=== PATIENT | female | born 1980 | race African-American/Black ===

== ENCOUNTER 2016-11-14 14:54 | Emergency (ER) | payer OTHER ==
[~2016-11-14] VITALS: Ht 170.2 cm; Wt 83.3 kg
[2016-11-14 16:29] LABS: HEMATOCRIT 36.4 % (36.0-46.0); MCH 30.7 PG (29.0-34.0); MCHC 34.3 G/DL (30.0-36.0); MCV 89.4 FL (83-99); RBC DIS.WIDTH-CV 11.4 % (11.8-14.6); RBC DIS.WIDTH-SD 37.2 % (39-53); RED BLOOD COUNT 4.07 M/uL (3.80-5.20); WHITE BLOOD COUNT 8.6 K/uL (4.1-10.2)
[2016-11-14 16:42] LABS: CHLORIDE 106 mEq/L (99-109); POTASSIUM 3.9 mEq/L (3.7-5.4); SODIUM 138 mEq/L (136-147)
[2016-11-14 16:44] LABS: GLUCOSE 84 mg/dL (70-99)
[2016-11-14 16:45] LABS: ANION GAP 10 MEQ/L (2-14)
[2016-11-14 16:46] LABS: TOTAL BILIRUBIN 0.5 mg/dL (0.0-1.0)
[2016-11-14 16:47] LABS: ALKALINE PHOSPHATASE 65 IU/L (3-129)
[2016-11-14 16:48] LABS: GFR ESTIMATE (CALCULATED) > 59 mL/min/
[2016-11-14 16:49] LABS: UREA NITROGEN (BUN) 9 mg/dL (9-23)
[2016-11-14 16:51] LABS: LIPASE 29 U/L (1.0-51.0)
[2016-11-14 17:22] LABS: MEAN PLAT.VOLUME 10.9 uM^3 (9.5-12.4); PLAT.SUFFICIENCY ADEQUATE; PLATELET COUNT 285 K/uL (156-360)
[2016-11-14] MEDS ORDERED: ZOFRAN ODT4 MG PO (18:16)
[2016-11-14] MEDS ORDERED: PHENADOZ25 MG PR (18:16)
[2016-11-14] MEDS ORDERED: PERCOCET 5/31 TABLET PO (18:16)
[2016-11-14] MEDS ORDERED: BENTYL20 MG PO (18:16)
[2016-11-14 18:40] LABS: ADD MIUA? NO; BILIRUBIN NEGATIVE; BLOOD NEGATIVE; COLOR YELLOW ((YELLOW)); GLUCOSE (STRIP) NEGATIVE; KETONES NEGATIVE; LEUKOCYTES NEGATIVE; NITRITE NEGATIVE; PROTEIN (STRIP) NEGATIVE; SPECIFIC GRAVITY 1.012 (1.000-1.030); UCUL ADDED? NO
[2016-11-14 18:48] VITALS: BP 151/93
== END 2016-11-14 18:49 | disposition home or self-care (01) ==
LOC: EME 14:54
DX: K80.10 Calculus of gallbladder with chronic cholecystitis without obstruction (principal)
CPT/HCPCS: 76705; 80053; 81003; 83690; 85027; 99281; 99283; J1885

== ENCOUNTER 2016-11-25 07:31 | Day surgery (SDC) | payer OTHER ==
[~2016-11-25] VITALS: Ht 170.2 cm; Wt 81.6 kg
[~2016-11-25 07:31] MED LIST: BENTYL20 MG PO; PERCOCET 5/31 TABLET PO; PHENADOZ25 MG PR; ZOFRAN ODT4 MG PO
[2016-11-25 07:59] VITALS: BP 113/76
[2016-11-25 12:09] VITALS: BP 122/71
[2016-11-25] MEDS ORDERED: PERCOCET 5/31 TABLET PO (12:49)
[2016-11-25 13:09] VITALS: BP 109/72
== END 2016-11-25 13:08 | disposition home or self-care (01) ==
LOC: SDC 07:31
PROC: 0FT44ZZ Resection of Gallbladder, Percutaneous Endoscopic Approach (ICD-10-PCS; principal; 2016-11-25)
DX: K80.10 Calculus of gallbladder with chronic cholecystitis without obstruction (principal); K21.9 Gastro-esophageal reflux disease without esophagitis
CPT/HCPCS: 88304; J0131; J1100; J1170; J1885; J2175; J2250; J2405; J2710; J2765; J3010

== ENCOUNTER 2016-12-04 20:57 | Emergency (ER) | payer OTHER ==
[~2016-12-04] VITALS: Ht 170.2 cm; Wt 83.2 kg
[2016-12-04 21:48] LABS: HEMATOCRIT 36.6 % (36.0-46.0); MCH 30.9 PG (29.0-34.0); MCHC 34.4 G/DL (30.0-36.0); MCV 89.7 FL (83-99); RBC DIS.WIDTH-CV 11.5 % (11.8-14.6); RBC DIS.WIDTH-SD 37.3 % (39-53); RED BLOOD COUNT 4.08 M/uL (3.80-5.20); WHITE BLOOD COUNT 7.4 K/uL (4.1-10.2)
[2016-12-04 21:56] LABS: PLATELET COUNT 328 K/uL (156-360)
[2016-12-04 22:01] LABS: CHLORIDE 107 mEq/L (99-109); POTASSIUM 3.8 mEq/L (3.7-5.4); SODIUM 141 mEq/L (136-147)
[2016-12-04 22:03] LABS: GLUCOSE 92 mg/dL (70-99)
[2016-12-04 22:04] LABS: ANION GAP 9 MEQ/L (2-14)
[2016-12-04 22:05] LABS: TOTAL BILIRUBIN 0.5 mg/dL (0.0-1.0)
[2016-12-04 22:07] LABS: ALKALINE PHOSPHATASE 80 IU/L (3-129); GFR ESTIMATE (CALCULATED) > 59 mL/min/
[2016-12-04 22:08] LABS: UREA NITROGEN (BUN) 8 mg/dL (9-23)
[2016-12-04 22:16] LABS: QUANTITATIVE HCG < 4.0 MIU/ML
[2016-12-05 00:05] LABS: ADD MIUA? YES; BILIRUBIN NEGATIVE; BLOOD SMALL; COLOR YELLOW ((YELLOW)); GLUCOSE (STRIP) NEGATIVE; KETONES NEGATIVE; LEUKOCYTES NEGATIVE; NITRITE NEGATIVE; PROTEIN (STRIP) NEGATIVE; SPECIFIC GRAVITY 1.013 (1.000-1.030)
[2016-12-05 00:10] LABS: BACTERIA RARE /HPF; EPITHELIAL CELLS 1+ /HPF; MUCUS TRACE /LPF; RED BLOOD CELLS 0-5 /HPF (0-5); UCUL ADDED? NO; WHITE BLOOD CELLS 0-5 /HPF (0-5)
[2016-12-05] MEDS ORDERED: FLEXERIL10 MG PO (01:22)
[2016-12-05] MEDS ORDERED: MOTRIN800 MG PO (01:22)
[2016-12-05 02:08] VITALS: BP 112/74
== END 2016-12-05 02:08 | disposition home or self-care (01) ==
LOC: EME 20:57
DX: S39.012A Strain of muscle, fascia and tendon of lower back, initial encounter (principal); Z90.49 Acquired absence of other specified parts of digestive tract; K21.9 Gastro-esophageal reflux disease without esophagitis; Z91.040 Latex allergy status
CPT/HCPCS: 71020; 74177; 80053; 81003; 84702; 85027; 99281; 99284; J2405; J7040